=== PATIENT | male | born 1960 | race Caucasian/White ===

== ENCOUNTER 2017-08-12 12:15 | Inpatient (IN) | payer OTHER ==
[2017-08-12] VITALS (11 sets, daily range): BP systolic 107–152; BP diastolic 56–91; PULSE 103–120; RESP 12–20; TEMP 97.2–98.5; O2SAT 93–99
[~2017-08-12] VITALS: Ht 172.7 cm; Wt 75.1 kg
[~2017-08-12 12:15] MED LIST: LEVEMIR SQ; NOVOLOGP2 SC; ULTR50TA PO
[2017-08-12] MEDS ORDERED: SODIUM CHLOR 0.9% 1000 ML INJ 1,000 ML IV ONE ×2 (13:56→14:26)
[2017-08-12] MEDS ORDERED: FAMOTIDINE 20 MG/2 ML VIAL IV PUSH ONE (14:00)
[2017-08-12] MEDS ORDERED: ALUMINUM/MAGNESIUM/SIMETH 30 ML CUP PO ONE (14:00)
[2017-08-12] MEDS ORDERED: SODIUM CHLORIDE 0.9% FLUSH 10 ML FLUSH IVF PRN (14:00)
[2017-08-12] MEDS ORDERED: ONDANSETRON HCL 4 MG/2 ML VIAL IVP ONE (14:00)
[2017-08-12] MEDS ORDERED: LIDOCAINE VISCOUS 2% SOLN 15 ML UDC PO ONE (14:00)
--- NOTE | 2017-08-12 14:13 | PD ---
HPI Chief Complaint: GI Complaint Time Seen by Provider: 13:39 Travel History International Travel<30 days: No Contact w/Intl Traveler<30days: No Traveled to known affect area: No History of Present Illness HPI The patient is a 56-year-old male who presents to the emergency department for 3 days of nausea, vomiting, generalized weakness. The patient now notes increased blood sugars which have been in the 300s and 400s. The patient does have a history of diabetes and takes insulin, long-acting insulin, short-acting insulin, and possibly Actos. He does not know the medication names. He last took his long-acting insulin 2 nights ago, last use short acting insulin, 16 units, last night. Blood sugar upon arrival today was 391. He complains of nausea, vomiting, without any epigastric abdominal pain. He does complain of generalized weakness, subjective fevers, chills, sweats, and body aches. He did not receive an influenza vaccination this year. He denies any new cough, does note occasional urinary retention. The patient states he fell several months ago, had difficulty getting out of bed, and had outpatient MRIs which were negative per his report. The patient's primary physician is Dr. Vega. Symptoms are moderate without any current alleviating or exacerbating factors. 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 Ware. [facility] Past Medical History Diabetes: Yes Diminished Hearing: No Immunizations Current: Yes Past Surgical History Other Surgery: Yes (L CAROTID SURGERY) Social History Alcohol Use: No Tobacco Use: Yes Substance Use: No Allergies-Medications (Allergen,Severity, Reaction): Coded Allergies: No Known Allergies (Unverified Adverse Reaction, Unknown, 08/12/17) Reported Meds & Prescriptions Reported Meds & Active Scripts Active Reported Bupropion HCl ER 24 HR (Bupropion HCl) 300 Mg Tab 300 Mg PO DAILY Atorvastatin (Atorvastatin Calcium) 40 Mg Tab 40 Mg PO HS Actos (Pioglitazone HCl) 45 Mg Tab 45 Mg PO DAILY Lisinopril 5 Mg Tab 5 Mg PO DAILY Tresiba Flextouch Pen Inj (Insulin Degludec Inj) 600 unit/3 ML Pen 44 Units SQ HS Novolog Inj (Insulin Aspart) 1,000 Unit/10 Ml Vial 0 SQ DIRECTED Sliding Scale as directed. Review of Systems Except as stated in HPI: all other systems reviewed are Neg General / Constitutional: Positive: Fever, Chills HENT: Positive: Lightheadedness Cardiovascular: No: Chest Pain or Discomfort Respiratory: No: Shortness of Breath Gastrointestinal: Positive: Nausea, Vomiting, Abdominal Pain, No: Diarrhea Genitourinary: Positive: Hesitancy, No: Dysuria Musculoskeletal: Positive: Myalgias, Weakness Neurologic: No: Dizziness Physical Exam Narrative GENERAL: Awake, alert, pleasant 56-year-old male who appears his stated age and is in no acute respiratory distress. SKIN: Focused skin assessment warm/dry. HEAD: Atraumatic. Normocephalic. EYES: Pupils equal and round. No scleral icterus. No injection or drainage. ENT: No nasal bleeding or discharge. Dry mucous membranes. NECK: Trachea midline. No JVD. CARDIOVASCULAR: Regular, tachycardic with a heart rate of 110. RESPIRATORY: No accessory muscle use. Clear to auscultation. Breath sounds equal bilaterally. GASTROINTESTINAL: Abdomen soft, mild tenderness epigastrium but no guarding or rigidity. MUSCULOSKELETAL: No obvious deformities. No clubbing. No cyanosis. No edema. NEUROLOGICAL: Awake and alert. No obvious cranial nerve deficits. Motor grossly within normal limits. Normal speech. PSYCHIATRIC: Appropriate mood and affect; insight and judgment normal. Data Data Last Documented VS Vital Signs Date Time Temp Pulse Resp B/P (MAP) Pulse Ox O2 Delivery O2 Flow Rate FiO2 08/12/17 14:16 103 18 152/91 (111) 97 08/12/17 14:07 Room Air 08/12/17 12:20 97.2 Orders Orders Electrocardiogram (08/12/17 13:56) Complete Blood Count With Diff (08/12/17 13:56) Comprehensive Metabolic Panel (08/12/17 13:56) Magnesium (Mg) (08/12/17 13:56) Beta Hydroxybutyrate (Acetone) (08/12/17 13:56) Lactic Acid (08/12/17 13:56) Urinalysis - C+S If Indicated (08/12/17 13:56) Chest, Single Ap (08/12/17 13:56) Blood Gas Venous (Vbg) (08/12/17 13:56) Blood Glucose (08/12/17 13:56) Blood Glucose (08/12/17 14:56) Ecg Monitoring (08/12/17 13:56) Iv Access Insert/Monitor (08/12/17 13:56) Oximetry (08/12/17 13:56) NPO (08/12/17 13:56) Sodium Chlor 0.9% 1000 Ml Inj (Ns 1000 M (08/12/17 13:56) Sodium Chlor 0.9% 1000 Ml Inj (Ns 1000 M (08/12/17 14:26) Sodium Chloride 0.9% Flush (Ns Flush) (08/12/17 14:00) Troponin I (08/12/17 13:56) Lipase (08/12/17 13:56) Ondansetron Inj (Zofran Inj) (08/12/17 14:00) Famotidine Inj (Pepcid Inj) (08/12/17 14:00) Al-Mag Hy-Si 40-40-4 Mg/Ml Liq (Mag-Al P (08/12/17 14:00) Lidocaine 2% Viscous (Xylocaine 2% Visco (08/12/17 14:00) Warehouse Delivery Manager / Telemetry [email or web address] (08/12/17 14:41) ^ Insert Iv (08/12/17 14:41) Diet Npo (08/12/17 Dinner) Sodium Chlor 0.9% 1000 Ml Inj (Ns 1000 M (08/12/17 14:41) Dext 5%-Nacl 0.9% 1000 Ml Inj (D5w-Ns 10 (08/12/17 14:41) Insulin Human Regular Inj (Novolin R Inj (08/12/17 14:45) Insulin Regular (Iv Infusion) (Novolin R (08/12/17 14:45) Potassium Chlor 40 Meq Premix (Kcl 40 Me (08/12/17 14:45) Potassium Chlor 40 Meq Premix (Kcl 40 Me (08/12/17 14:45) Potassium Chlor 20 Meq Premix (Kcl 20 Me (08/12/17 14:45) Potassium Chlor 20 Meq Premix (Kcl 20 Me (08/12/17 14:45) Potassium Chlor 20 Meq Premix (Kcl 20 Me (08/12/17 14:45) Potassium Chlor 20 Meq Premix (Kcl 20 Me (08/12/17 14:45) Potassium Chlor 20 Meq Premix (Kcl 20 Me (08/12/17 14:45) Potassium Chlor 20 Meq Premix (Kcl 20 Me (08/12/17 14:45) Sodium Bicarbonate 8.4% Inj (Sodium Bica (08/12/17 14:45) Sodium Bicarbonate 8.4% Inj (Sodium Bica (08/12/17 14:45) Sodium Phosphate Inj (Sodium Phosphate I (08/12/17 14:45) Hemoglobin (Hgb) A1c (08/12/17 14:41) Basic Metabolic Panel (Bmp) (08/12/17 19:41) Basic Metabolic Panel (Bmp) (08/13/17 01:41) Basic Metabolic Panel (Bmp) (08/13/17 07:41) Basic Metabolic Panel (Bmp) (08/13/17 13:41) Magnesium (Mg) (08/12/17 19:41) Magnesium (Mg) (08/13/17 01:41) Magnesium (Mg) (08/13/17 07:41) Magnesium (Mg) (08/13/17 13:41) Phosphorus (Po4) (08/12/17 19:41) Phosphorus (Po4) (08/13/17 01:41) Phosphorus (Po4) (08/13/17 07:41) Phosphorus (Po4) (08/13/17 13:41) Beta Hydroxybutyrate (Acetone) (08/13/17 01:41) Beta Hydroxybutyrate (Acetone) (08/13/17 13:41) Admit Order (Ed Use Only) (08/12/17 14:48) Labs Laboratory Tests Test 08/12/17 14:08 08/12/17 14:16 White Blood Count 7.8 TH/MM3 Red Blood Count 5.19 MIL/MM3 Hemoglobin 15.7 GM/DL Hematocrit 47.8 % Mean Corpuscular Volume 92.2 FL Mean Corpuscular Hemoglobin 30.2 PG Mean Corpuscular Hemoglobin Concent 32.7 % Red Cell Distribution Width 13.1 % Platelet Count 214 TH/MM3 Mean Platelet Volume 8.3 FL Neutrophils (%) (Auto) 85.2 % Lymphocytes (%) (Auto) 10.1 % Monocytes (%) (Auto) 3.7 % Eosinophils (%) (Auto) 0.0 % Basophils (%) (Auto) 1.0 % Neutrophils # (Auto) 6.6 TH/MM3 Lymphocytes # (Auto) 0.8 TH/MM3 Monocytes # (Auto) 0.3 TH/MM3 Eosinophils # (Auto) 0.0 TH/MM3 Basophils # (Auto) 0.1 TH/MM3 CBC Comment DIFF FINAL Differential Comment Blood Urea Nitrogen 17 MG/DL Creatinine 1.30 MG/DL Random Glucose 400 MG/DL Total Protein 8.7 GM/DL Albumin 4.1 GM/DL Calcium Level 10.0 MG/DL Magnesium Level 2.1 MG/DL Alkaline Phosphatase 135 U/L Aspartate Amino Transf (AST/SGOT) 11 U/L Alanine Aminotransferase (ALT/SGPT) 22 U/L Total Bilirubin 0.6 MG/DL Sodium Level 133 MEQ/L Potassium Level 5.1 MEQ/L Chloride Level 95 MEQ/L Carbon Dioxide Level 12.4 MEQ/L Anion Gap 26 MEQ/L Estimat Glomerular Filtration Rate 57 ML/MIN Lactic Acid Level 2.3 mmol/L Troponin I LESS THAN 0.02 NG/ML Lipase 50 U/L B-Hydroxybutyrate 10.99 MMOL/L Blood Gas Puncture Site P.IV Blood Gas Patient Temperature 98.6 Venous Blood pH 7.18 Venous Blood Partial Pressure CO2 30 mmHg Venous Blood Partial Pressure O2 49 mmHg Venous Blood HCO3 11 mmol/L Venous Blood Oxygen Saturation 74 % Venous Blood Oxygen Content 16.7 Vol % Venous Blood Base Excess -15.9 mmol/L Oxygen Delivery Device ROOM AIR Blood Gas Inspired Oxygen 21 % [facility] Medical Decision Making Medical Screen Exam Complete: Yes Emergency Medical Condition: Yes Medical Record Reviewed: Yes Interpretation(s) EKG reveals sinus tachycardia with a heart rate of 101. Left anterior fascicular block. Last Impressions Chest X-Ray 08/12/17 1066 Signed Impressions: Service Date/Time: Saturday, August 12, 2017 14:02 - CONCLUSION: No acute disease. Eric Han MD FACR Laboratory Tests Test 08/12/17 14:08 08/12/17 14:16 White Blood Count 7.8 TH/MM3 Red Blood Count 5.19 MIL/MM3 Hemoglobin 15.7 GM/DL Hematocrit 47.8 % Mean Corpuscular Volume 92.2 FL Mean Corpuscular Hemoglobin 30.2 PG Mean Corpuscular Hemoglobin Concent 32.7 % Red Cell Distribution Width 13.1 % Platelet Count 214 TH/MM3 Mean Platelet Volume 8.3 FL Neutrophils (%) (Auto) 85.2 % Lymphocytes (%) (Auto) 10.1 % Monocytes (%) (Auto) 3.7 % Eosinophils (%) (Auto) 0.0 % Basophils (%) (Auto) 1.0 % Neutrophils # (Auto) 6.6 TH/MM3 Lymphocytes # (Auto) 0.8 TH/MM3 Monocytes # (Auto) 0.3 TH/MM3 Eosinophils # (Auto) 0.0 TH/MM3 Basophils # (Auto) 0.1 TH/MM3 CBC Comment DIFF FINAL Differential Comment Blood Urea Nitrogen 17 MG/DL Creatinine 1.30 MG/DL Random Glucose 400 MG/DL Total Protein 8.7 GM/DL Albumin 4.1 GM/DL Calcium Level 10.0 MG/DL Magnesium Level 2.1 MG/DL Alkaline Phosphatase 135 U/L Aspartate Amino Transf (AST/SGOT) 11 U/L Alanine Aminotransferase (ALT/SGPT) 22 U/L Total Bilirubin 0.6 MG/DL Sodium Level 133 MEQ/L Potassium Level 5.1 MEQ/L Chloride Level 95 MEQ/L Carbon Dioxide Level 12.4 MEQ/L Anion Gap 26 MEQ/L Estimat Glomerular Filtration Rate 57 ML/MIN Lactic Acid Level 2.3 mmol/L Troponin I LESS THAN 0.02 NG/ML Lipase 50 U/L B-Hydroxybutyrate 10.99 MMOL/L Blood Gas Puncture Site P.IV Blood Gas Patient Temperature 98.6 Venous Blood pH 7.18 Venous Blood Partial Pressure CO2 30 mmHg Venous Blood Partial Pressure O2 49 mmHg Venous Blood HCO3 11 mmol/L Venous Blood Oxygen Saturation 74 % Venous Blood Oxygen Content 16.7 Vol % Venous Blood Base Excess -15.9 mmol/L Oxygen Delivery Device ROOM AIR Blood Gas Inspired Oxygen 21 % Differential Diagnosis Differential diagnosis includes gastritis, GERD, pancreatitis, biliary colic, DKA, dehydration, hypokalemia, hyponatremia, electrolyte abnormality, STEMI. Narrative Course IV was established, labs are drawn and sent, and the patient was placed on cardiac telemetry monitoring and continuous pulse oximetry monitoring. VBG was obtained. The patient was administered Zofran, GI cocktail, Pepcid, 2 L of IV fluids. Chest x-ray was obtained. UA was sent to lab. Patient's VBG reveals a pH of 7.18 with low bicarb, anion gap is 26, beta hydroxy is greater than 10, labs are consistent with diabetic ketoacidosis. The patient was administered 2 L of IV fluids, placed on DKA pathway with insulin 6 units intravenously and placed on an insulin drip. Chest x-ray was negative. Creatinine was unremarkable. The patient will be admitted to the intensive care unit under DKA protocol. Critical Care Narrative Aggregate critical care time was 40 minutes. Time to perform other separately billable procedures was not included in the critical care time. My time did not include minutes spent treating any other patients simultaneously or on activities that did not directly contribute to the patient's treatment. The services I provided to this patient were to treat and/or prevent clinically significant deterioration that could result in: Dehydration, acute renal failure , electrolyte abnormality, arrhythmia, coma. I provided critical care services requiring my management, as noted below: Chart data review, documentation time, medication orders and management, vital sign assessments/reviewing monitor data, ordering and reviewing lab tests, ordering and interpreting/reviewing x-rays and diagnostic studies, care of the patient and discussion of the patient with the admitting physicians. Physician Communication Physician Communication The on-call medical service was paged for admission. I discussed the patient with Dr. Piper who agrees with admission. Diagnosis Primary Impression: DKA (diabetic ketoacidoses) Qualified Codes: E13.10 - Other specified diabetes mellitus with ketoacidosis without coma Admitting Information Admitting Physician Requests: Admit Condition: Stable Chris Johnson MD Aug 12, 2017 14:13
[2017-08-12] MEDS ORDERED: NOVOLOGP2 SQ (14:15)
[2017-08-12] MEDS ORDERED: INSU1INJ13 SQ (14:15)
[2017-08-12] MEDS ORDERED: ATOR40TA16 PO (14:15)
[2017-08-12] MEDS ORDERED: ACTO45TA15 PO (14:15)
[2017-08-12] MEDS ORDERED: LISI-519 PO (14:15)
[2017-08-12] MEDS ORDERED: BUPR300T PO (14:15)
[2017-08-12 14:16] LABS: AUTOMATED NEUTROPHIL # 6.6 TH/MM3 (1.8-7.7); BASOPHIL # 0.1 TH/MM3 (0-0.2); HEMATOCRIT 47.8 % (39.0-51.0); HEMOGLOBIN 15.7 GM/DL (13.0-17.0); LYMPH % 10.1 % (9.0-44.0); LYMPHOCYTE # 0.8 TH/MM3 (1.0-4.8); MEAN CELL VOLUME 92.2 FL (80.0-100.0); MEAN CORPUSCULAR HEMOGLOBIN 30.2 PG (27.0-34.0); MEAN CORPUSCULAR HGB CONC 32.7 % (32.0-36.0); MEAN PLATELET VOLUME 8.3 FL (7.0-11.0); MONO % 3.7 % (0.0-8.0); MONOCYTE # 0.3 TH/MM3 (0-0.9); NEUT % 85.2 % (16.0-70.0); PLATELET COUNT 214 TH/MM3 (150-450); RED BLOOD COUNT 5.19 MIL/MM3 (4.50-5.90); RED CELL DISTRIBUTION WIDTH 13.1 % (11.6-17.2); WHITE BLOOD COUNT 7.8 TH/MM3 (4.0-11.0)
[2017-08-12 14:25] LABS: CHLORIDE 95 MEQ/L (98-107); SODIUM (NA) 133 MEQ/L (136-145)
--- NOTE | 2017-08-12 14:26 | RADRPT ---
EXAM DATE/TIME: 08/12/2017 14:02 [place] COMPARISON: No previous studies available for comparison. INDICATIONS : Vomiting and heartburn MEDICAL HISTORY : None. SURGICAL HISTORY : None. ENCOUNTER: Initial ACUITY: 3 days PAIN SCORE: 0/10 LOCATION: Bilateral chest FINDINGS: A single view of the chest demonstrates the lungs to be symmetrically aerated without evidence of mas s, infiltrate or effusion. The cardiomediastinal contours are unremarkable. Osseous structures are intact. CONCLUSION: No acute disease. Eric Han MD FACR on August 12, 2017 at 14:24 Board Certified Radiologist. This report was verified electronically.
[2017-08-12 14:29] LABS: ALBUMIN 4.1 GM/DL (3.4-5.0); BICARBONATE 12.4 MEQ/L (21.0-32.0); BLOOD UREA NITROGEN 17 MG/DL (7-18); GLUCOSE,RANDOM 400 MG/DL (74-106); MAGNESIUM 2.1 MG/DL (1.5-2.5)
[2017-08-12 14:31] LABS: ALT (GPT) 22 U/L (12-78); AST (GOT) 11 U/L (15-37); GLOMERULAR FILTRATION RATE 57 ML/MIN (>89)
[2017-08-12 14:33] LABS: TOTAL BILIRUBIN ADULT 0.6 MG/DL (0.2-1.0); TOTAL PROTEIN 8.7 GM/DL (6.4-8.2)
[2017-08-12 14:34] LABS: ALKALINE PHOSPHATASE 135 U/L (45-117)
[2017-08-12 14:37] LABS: TROPONIN I LESS THAN 0.02 NG/ML (0.02-0.05)
[2017-08-12] MEDS ORDERED: INSULIN REGULAR (IV INFUSION) 100 UNITS in SODIUM CHLORIDE 0.9% INJ 99 ML IV PRN (14:45)
[2017-08-12] MEDS ORDERED: POTASSIUM CHLOR 20 MEQ PREMIX 100 ML IV PRN ×6 (14:45)
[2017-08-12] MEDS ORDERED: SODIUM PHOSPHATE INJ 15 MMOL in SODIUM CHLORIDE 0.9% INJ 100 ML IV PRN (14:45)
[2017-08-12] MEDS ORDERED: SODIUM BICARBONATE 8.4% SOLN 50 MEQ/50 ML VIAL IV PUSH PRN ×2 (14:45)
[2017-08-12] MEDS ORDERED: POTASSIUM CHLOR 40 MEQ PREMIX 100 ML IV PRN ×2 (14:45)
[2017-08-12] MEDS ORDERED: INSULIN HUMAN REGULAR 1,000 UNITS/10 ML VIAL IV PUSH ONE (14:45)
--- NOTE | 2017-08-12 15:14 | HHI.HP ---
[facility] Service [facility] Primary Care Physician Cezar Vega MD Admission Diagnosis Diabetic ketoacidosis, dehydration Diagnoses: Chief Complaint: Weakness and nausea Travel History International Travel<30 Days: No Contact w/Intl Traveler <30 Da: No Traveled to Known Affected Are: No History of Present Illness This patient is a 56-year-old gentleman with a history of diabetes which has been managed by the patient and his primary care doctor. He does note increase in blood sugars lately into the 3 and 400s and recently had increased nausea and vomiting with weakness. He saw his primary care doctor today on the advice of his and was sent emergently to the emergency room for further evaluation. Patient is grossly weak and is acidotic with elevated beta hydroxybutyrate acid. Patient been admitted to the hospital due to DKA. He notes no chest pain and no muscular skeletal injury. He notes no fevers or chills. Here he received insulin and has felt better. He was given some antiemetics and has felt better also Review of Systems Constitutional: DENIES: Diaphoretic episodes, Fatigue, Fever, Weight gain, Weight loss, Chills, Dizziness, Change in appetite, Night Sweats Endocrine: DENIES: Heat/cold intolerance, Polydipsia, Polyuria, Polyphagia Eyes: DENIES: Blurred vision, Diplopia, Eye inflammation, Eye pain, Vision loss , Photosensitivity, Double Vision Ears, nose, mouth, throat: DENIES: Tinnitus, Hearing loss, Vertigo, Nasal discharge, Oral lesions, Throat pain, Hoarseness, Ear Pain, Running Nose, Epistaxis, Sinus Pain, Toothache, Odynophagia Respiratory: DENIES: Apneas, Cough, Snoring, Wheezing, Hemoptysis, Sputum production, Shortness of breath Cardiovascular: DENIES: Chest pain, Palpitations, Syncope, Dyspnea on Exertion , PND, Lower Extremity Edema, Orthopnea, Claudication Gastrointestinal: COMPLAINS OF: Nausea, Vomiting, DENIES: Abdominal pain, Black stools, Bloody stools, Constipation, Diarrhea, Difficulty Swallowing, Anorexia Genitourinary: COMPLAINS OF: Urinary frequency, DENIES: Sexual dysfunction, Urinary incontinence, Urgency, Hematuria, Dysuria, Nocturia, Penile Discharge, Testicular Pain, Testicular Swelling Musculoskeletal: DENIES: Joint pain, Muscle aches, Stiffness, Joint Swelling, Back pain, Neck pain Integumentary: DENIES: Abnormal pigmentation, Nail changes, Pruritus, Rash Hematologic/lymphatic: DENIES: Bruising, Lymphadenopathy Neurologic: DENIES: Abnormal gait, Headache, Localized weakness, Paresthesias, Seizures, Speech Problems, Tremor, Poor Balance Psychiatric: COMPLAINS OF: Anxiety, DENIES: Confusion, Mood changes, Depression , Hallucinations, Agitation, Suicidal Ideation, Homicidal Ideation, Delusions Except as stated in HPI: all other systems reviewed are Neg Past Family Social History Past Medical History Diabetes mellitus type 2 Hyperlipidemia Hypertension Anxiety Past Surgical History Minor orthopedic surgery Reported Medications Reviewed in the EMR Allergies: Coded Allergies: No Known Allergies (Unverified Allergy, Unknown, 08/12/17) Active Ordered Medications Reviewed in the EMR Family History Mother is alive and well Father from heart disease Social History Patient smokes cigars daily for 40 years, no alcohol 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 SKIN: No rashes, ecchymoses or lesions. Cool and dry. HEAD: Atraumatic. Normocephalic. No temporal or scalp tenderness. EYES: Pupils equal round and reactive. Extraocular motions intact. No scleral icterus. No injection or drainage. ENT: Nose without bleeding, purulent drainage or septal hematoma. Throat without erythema, tonsillar hypertrophy or exudate. Uvula midline. Airway patent. NECK: Trachea midline. No JVD or lymphadenopathy. Supple, nontender, no meningeal signs. CARDIOVASCULAR: Regular rate and rhythm without murmurs, gallops, or rubs. RESPIRATORY: Clear to auscultation. Breath sounds equal bilaterally. No wheezes , rales, or rhonchi. GASTROINTESTINAL: Abdomen soft, non-tender, nondistended. No hepato-splenomegaly , or palpable masses. No guarding. MUSCULOSKELETAL: Extremities without clubbing, cyanosis, or edema. No joint tenderness, effusion, or edema noted. No calf tenderness. Negative Homans sign bilaterally. NEUROLOGICAL: Awake and alert. Cranial nerves II through XII intact. Motor and sensory grossly within normal limits. Five out of 5 muscle strength in all muscle groups. Normal speech. Laboratory Laboratory Tests Test 08/12/17 14:08 08/12/17 14:16 08/12/17 14:50 White Blood Count 7.8 Red Blood Count 5.19 Hemoglobin 15.7 Hematocrit 47.8 Mean Corpuscular Volume 92.2 Mean Corpuscular Hemoglobin 30.2 Mean Corpuscular Hemoglobin Concent 32.7 Red Cell Distribution Width 13.1 Platelet Count 214 Mean Platelet Volume 8.3 Neutrophils (%) (Auto) 85.2 Lymphocytes (%) (Auto) 10.1 Monocytes (%) (Auto) 3.7 Eosinophils (%) (Auto) 0.0 Basophils (%) (Auto) 1.0 Neutrophils # (Auto) 6.6 Lymphocytes # (Auto) 0.8 Monocytes # (Auto) 0.3 Eosinophils # (Auto) 0.0 Basophils # (Auto) 0.1 CBC Comment DIFF FINAL Differential Comment Blood Urea Nitrogen 17 Creatinine 1.30 Random Glucose 400 Total Protein 8.7 Albumin 4.1 Calcium Level 10.0 Magnesium Level 2.1 Alkaline Phosphatase 135 Aspartate Amino Transf (AST/SGOT) 11 Alanine Aminotransferase (ALT/SGPT) 22 Total Bilirubin 0.6 Sodium Level 133 Potassium Level 5.1 Chloride Level 95 Carbon Dioxide Level 12.4 Anion Gap 26 Estimat Glomerular Filtration Rate 57 Lactic Acid Level 2.3 Troponin I LESS THAN 0.02 Lipase 50 B-Hydroxybutyrate 10.99 Blood Gas Puncture Site P.IV Blood Gas Patient Temperature 98.6 Venous Blood pH 7.18 Venous Blood Partial Pressure CO2 30 Venous Blood Partial Pressure O2 49 Venous Blood HCO3 11 Venous Blood Oxygen Saturation 74 Venous Blood Oxygen Content 16.7 Venous Blood Base Excess -15.9 Oxygen Delivery Device ROOM AIR Blood Gas Inspired Oxygen 21 Result Diagram: 08/12/17 1408 08/12/17 1408 Imaging Last Impressions Chest X-Ray 08/12/17 1356 Signed Impressions: Service Date/Time: Saturday, August 12, 2017 14:02 - CONCLUSION: No acute disease. Eric Han MD FACR Caprini VTE Risk Assessment Caprini VTE Risk Assessment: Mod/High Risk (score >= 2) Caprini Risk Assessment Model Point Value = 1 Point Value = 2 Point Value = 3 Point Value = 5 Age 41-60 Minor surgery BMI > 25 kg/m2 Swollen legs Varicose veins or History of unexplained or recurrent spontaneous Oral contraceptives or hormone replacement Sepsis (< 1 month) Serious lung disease, including pneumonia (< 1 month) Abnormal pulmonary function Acute myocardial infarction Congestive heart failure (< 1 month) History of inflammatory bowel disease Medical patient at bed rest Age 61-74 Arthroscopic surgery Major open surgery (> 45 min) Laparoscopic surgery (> 45 min) Malignancy Confined to bed (> 72 hours) Immobilizing plaster cast Central venous access Age >= 75 History of VTE Family history of VTE Factor V Leiden Prothrombin [id number] Lupus anticoagulant Anticardiolipin antibodies Elevated serum homocysteine Heparin-induced thrombocytopenia Other congenital or acquired thrombophilia Stroke (< 1 month) Elective arthroplasty Hip, pelvis, or leg fracture Acute spinal cord injury (< 1 month) Prophylaxis Regimen Total Risk Factor Score Risk Level Prophylaxis Regimen 0-1 Low Early ambulation 2 Moderate Order ONE of the following: *Sequential Compression Device (SCD) *Heparin 5000 units SQ BID 3-4 Higher Order ONE of the following medications: *Heparin 5000 units SQ TID *Enoxaparin/Lovenox 40 mg SQ daily (WT < 150 kg, CrCl > 30 mL/min) *Enoxaparin/Lovenox 30 mg SQ daily (WT < 150 kg, CrCl > 10-29 mL/min) *Enoxaparin/Lovenox 30 mg SQ BID (WT < 150 kg, CrCl > 30 mL/min) AND/OR *Sequential Compression Device (SCD) 5 or more Highest Order ONE of the following medications: *Heparin 5000 units SQ TID (Preferred with Epidurals) *Enoxaparin/Lovenox 40 mg SQ daily (WT < 150 kg, CrCl > 30 mL/min) *Enoxaparin/Lovenox 30 mg SQ daily (WT < 150 kg, CrCl > 10-29 mL/min) *Enoxaparin/Lovenox 30 mg SQ BID (WT < 150 kg, CrCl > 30 mL/min) AND *Sequential Compression Device (SCD) Assessment and Plan Problem List: (1) DKA (diabetic ketoacidoses) ICD Code: E13.10 - Other specified diabetes mellitus with ketoacidosis without coma Status: Acute Plan: Continue with IV insulin IV fluids and electrolyte management Patient will be admitted to the ICU Problem Qualifiers (1) DKA (diabetic ketoacidoses): Qualified Codes: E13.10 - Other specified diabetes mellitus with ketoacidosis without coma Lala Piper MD Aug 12, 2017 15:14
[2017-08-12 15:30] LABS: BILIRUBIN, URINE NEG (NEG); BLOOD, URINE TRACE (NEG); GLUCOSE,URINE 1000 OR GREATER mg/dL (NEG); KETONE, URINE 80 OR GREATER mg/dL (NEG); NITRITE,URINE NEG (NEG); PH, URINE 5.5 (5.0-8.5); URINE COLOR YELLOW (YELLW/STRAW); URINE LEUKOCYTE ESTERASE NEG (NEG)
[2017-08-12 15:32] LABS: HYALINE CAST, URINE 0-2 /lpf (RARE)
[2017-08-12 15:33] LABS: RBC, URINE 0-3 /hpf (0-3); SQUAMOUS EPITHELIAL CELL URINE 0-5 /hpf (0-5)
[2017-08-12] MEDS: SODIUM CHLOR 0.9% 1000 ML INJ 1,000 ML IV SCH ×3 (16:09→22:41)
[2017-08-12] MEDS ORDERED: ACETAMINOPHEN 325 MG TAB PO PRN (18:15)
[2017-08-12] MEDS ORDERED: NALOXONE HCL 0.4 MG/ML AMP IV PUSH PRN (18:15)
[2017-08-12] MEDS ORDERED: SODIUM CHLORIDE 0.9% FLUSH 10 ML FLUSH IV FLUSH PRN (18:15)
[2017-08-12] MEDS ORDERED: MAGNESIUM HYDROXIDE SUSP 30 ML CUP PO PRN (18:15)
[2017-08-12] MEDS ORDERED: ONDANSETRON HCL 4 MG/2 ML VIAL IVP PRN (18:15)
[2017-08-12] MEDS: DEXT 5%-NACL 0.9% 1000 ML INJ 1,000 ML IV SCH ×2 (19:15→21:18)
[2017-08-12 19:26] LABS: BICARBONATE 12.7 MEQ/L (21.0-32.0); BLOOD UREA NITROGEN 16 MG/DL (7-18); CALCIUM 8.5 MG/DL (8.5-10.1); CHLORIDE 110 MEQ/L (98-107); GLOMERULAR FILTRATION RATE 69 ML/MIN (>89); GLUCOSE,RANDOM 217 MG/DL (74-106); PHOSPHORUS 0.9 MG/DL (2.5-4.9); SODIUM (NA) 141 MEQ/L (136-145)
[2017-08-12] MEDS: buPROPion HCL 150 MG SUSTAINED RELEASE TAB PO SCH (21:00)
[2017-08-12] MEDS: SODIUM CHLORIDE 0.9% FLUSH 10 ML FLUSH IV FLUSH SCH (21:00)
[2017-08-12] MEDS: ENOXAPARIN SODIUM 40 MG/0.4 ML SYRINGE SQ SCH (21:16)
[2017-08-12] MEDS: ATORVASTATIN 40 MG TAB PO SCH (21:17)
[2017-08-13] VITALS (23 sets, daily range): BP systolic 96–128; BP diastolic 57–77; PULSE 88–110; RESP 10–21; TEMP 96.8–98.5; O2SAT 93–98
[2017-08-13] MEDS: DEXT 5%-NACL 0.9% 1000 ML INJ 1,000 ML IV SCH (00:41)
[2017-08-13 00:43] LABS: CALCIUM 8.3 MG/DL (8.5-10.1)
[2017-08-13 01:08] LABS: BICARBONATE 22.7 MEQ/L (21.0-32.0); CREATININE 1.1 MG/DL (0.60-1.30); PHOSPHORUS 0.2 MG/DL (2.5-4.9)
[2017-08-13] MEDS: SODIUM CHLOR 0.9% 1000 ML INJ 1,000 ML IV SCH ×3 (03:32→23:10)
[2017-08-13 06:23] LABS: AUTOMATED NEUTROPHIL # 7.2 TH/MM3 (1.8-7.7); BASOPHIL # 0.5 TH/MM3 (0-0.2); BASOPHIL % 4.8 % (0.0-2.0); EOSINOPHIL % 0.2 % (0.0-4.0); HEMATOCRIT 38.4 % (39.0-51.0); HEMOGLOBIN 12.9 GM/DL (13.0-17.0); LYMPH % 13.4 % (9.0-44.0); LYMPHOCYTE # 1.3 TH/MM3 (1.0-4.8); MEAN CELL VOLUME 91.1 FL (80.0-100.0); MEAN CORPUSCULAR HEMOGLOBIN 30.5 PG (27.0-34.0); MEAN CORPUSCULAR HGB CONC 33.5 % (32.0-36.0); MEAN PLATELET VOLUME 7.7 FL (7.0-11.0); MONO % 7.5 % (0.0-8.0); MONOCYTE # 0.7 TH/MM3 (0-0.9); NEUT % 74.1 % (16.0-70.0); PLATELET COUNT 187 TH/MM3 (150-450); RED BLOOD COUNT 4.22 MIL/MM3 (4.50-5.90); RED CELL DISTRIBUTION WIDTH 12.7 % (11.6-17.2); WHITE BLOOD COUNT 9.7 TH/MM3 (4.0-11.0)
[2017-08-13] MEDS ORDERED: GLUCAGON 1 MG/ML VIAL OTHER PRN (06:30)
[2017-08-13] MEDS ORDERED: DEXTROSE 50% IN WATER 50 ML VIAL(D50) IV PUSH PRN (06:30)
[2017-08-13] MEDS: INSULIN ASPART SUPPLEMENTAL SCALE SQ SCH ×4 (08:00→20:50)
[2017-08-13] MEDS: LISINOPRIL 5 MG TAB PO SCH (09:22)
[2017-08-13] MEDS: SODIUM CHLORIDE 0.9% FLUSH 10 ML FLUSH IV FLUSH SCH ×2 (09:22→20:49)
[2017-08-13] MEDS: buPROPion HCL 150 MG SUSTAINED RELEASE TAB PO SCH ×2 (09:23→20:49)
[2017-08-13] MEDS: INSULIN DETEMIR 100 UNITS/ML VIAL SQ SCH ×2 (09:23→20:50)
[2017-08-13] MEDS ORDERED: PNEUMOCOCCAL POLYVALENT INJ 25 MCG/0.5 ML SYR IM ONE (10:00)
--- NOTE | 2017-08-13 12:26 | HHI.PR ---
Subjective Remarks Patient seen in follow up for DKE likely due to poor compliance to medications and diet better now off IV insulin Tolerating diet and gap is closed still feels weak complains of left thigh knot after fall 5 weeks ago Objective Vitals Vital Signs Date Time Temp Pulse Resp B/P (MAP) Pulse Ox O2 Delivery O2 Flow Rate FiO2 08/13/17 11:00 94 21 124/76 (92) 96 08/13/17 10:00 88 10 113/64 (80) 97 08/13/17 10:00 88 08/13/17 09:00 98 21 120/77 (91) 97 08/13/17 08:00 98.5 98 19 103/67 (79) 98 08/13/17 08:00 104 08/13/17 07:00 102 18 95 08/13/17 06:25 100 08/13/17 06:15 90 14 97/65 (76) 97 08/13/17 05:30 98 16 108/66 (80) 94 08/13/17 04:24 97.3 100 20 113/61 (78) 08/13/17 04:00 105 08/13/17 03:01 100 15 128/57 (80) 96 08/13/17 02:10 103 08/13/17 02:01 98 14 118/61 (80) 95 08/13/17 01:01 108 15 113/63 (80) 95 08/13/17 00:01 98.2 110 17 114/59 (77) 93 08/13/17 00:00 108 08/12/17 23:17 106 08/12/17 23:01 116 18 122/57 (78) 95 08/12/17 22:00 118 13 113/62 (79) 93 08/12/17 21:00 120 19 118/61 (80) 95 08/12/17 20:00 119 08/12/17 20:00 104 12 122/67 (85) 96 08/12/17 19:34 107 08/12/17 19:07 98.5 106 17 132/61 (84) 96 08/12/17 18:36 08/12/17 17:59 118 20 107/56 (73) 99 Room Air 08/12/17 14:16 103 18 152/91 (111) 97 08/12/17 14:07 97 Room Air I/O 08/12/17 08/12/17 08/12/17 08/13/17 08/13/17 08/13/17 07:00 15:00 23:00 07:00 15:00 23:00 Intake Total 3308.3 ml 1100 ml Output Total 1000 ml 1400 ml Balance 2308.3 ml -300 ml Intake IV Total 3308.3 ml 1100 ml Output Urine Total 1000 ml 1400 ml # Voids 2 Result Diagram: 08/13/17 0605 08/13/17 0002 Imaging Last Impressions Chest X-Ray 08/12/17 1356 Signed Impressions: Service Date/Time: Saturday, August 12, 2017 14:02 - CONCLUSION: No acute disease. Eric Han MD FACR Objective Remarks GENERAL: This is a well-nourished, well-developed patient, in no apparent distress. CARDIOVASCULAR: Regular rate and rhythm without murmurs, gallops, or rubs. RESPIRATORY: Clear to auscultation. Breath sounds equal bilaterally. No wheezes , rales, or rhonchi. GASTROINTESTINAL: Abdomen soft, non-tender, nondistended. Normal active bowel sounds MUSCULOSKELETAL: left thigh muscular knot, no edema, no ecchymosis other 3 Extremities without clubbing, cyanosis, or edema. NEURO: Alert & Oriented x4 to person, place, time, situation. Moves all ext x4 A/P Problem List: (1) DKA (diabetic ketoacidoses) ICD Code: E13.10 - Other specified diabetes mellitus with ketoacidosis without coma Status: Acute Plan: Continue with SQ insulin advance diet/activity ptn education Discharge Planning dc in am if stable med surg unit d/w director nicu Problem Qualifiers (1) DKA (diabetic ketoacidoses): Qualified Codes: E13.10 - Other specified diabetes mellitus with ketoacidosis without coma Lala Piper MD Aug 13, 2017 12:25
[2017-08-13] MEDS ORDERED: MENTHOL/METHYL SALICYLATE OINT 30 GM TUBE TOPICAL PRN (12:30)
[2017-08-13] MEDS: DOCUSATE SODIUM 100 MG CAP PO SCH ×2 (13:00→20:49)
[2017-08-13] MEDS: INSULIN ASPART 1,000 UNITS/10 ML VIAL SQ SCH ×2 (13:30→17:23)
[2017-08-13] MEDS ORDERED: INSULIN HUMAN REGULAR 1,000 UNITS/10 ML VIAL SQ SCH (13:30)
--- NOTE | 2017-08-13 19:28 | EKG ---
Date Performed: 08/12/2017 Time Performed: 14:14:17 PTAGE: 56 years EKG: SINUS TACHYCARDIA LEFT ANTERIOR FASCICULAR BLOCK ABNORMAL ECG Since PREVIOUS TRACING , no significant change noted PREVIOUS TRACIN04/14/2015 07.32 DOCTOR: Kate Alba Interpretating Date/Time 08/13/2017 19:25:01
[2017-08-13] MEDS: ATORVASTATIN 40 MG TAB PO SCH (20:49)
[2017-08-13] MEDS: ENOXAPARIN SODIUM 40 MG/0.4 ML SYRINGE SQ SCH (20:50)
[2017-08-14] VITALS (7 sets, daily range): BP systolic 102–129; BP diastolic 56–68; PULSE 89–101; RESP 16–20; TEMP 96.6–97.7; O2SAT 93–97
[2017-08-14 07:30] LABS: AUTOMATED NEUTROPHIL # 2.2 TH/MM3 (1.8-7.7); BASOPHIL # 0.1 TH/MM3 (0-0.2); BASOPHIL % 1.8 % (0.0-2.0); EOSINOPHIL # 0.1 TH/MM3 (0-0.4); EOSINOPHIL % 2.1 % (0.0-4.0); HEMATOCRIT 36.6 % (39.0-51.0); HEMOGLOBIN 12.8 GM/DL (13.0-17.0); LYMPH % 27.2 % (9.0-44.0); LYMPHOCYTE # 1.1 TH/MM3 (1.0-4.8); MEAN CELL VOLUME 90.2 FL (80.0-100.0); MEAN CORPUSCULAR HEMOGLOBIN 31.5 PG (27.0-34.0); MEAN CORPUSCULAR HGB CONC 34.9 % (32.0-36.0); MEAN PLATELET VOLUME 8.3 FL (7.0-11.0); MONO % 9.2 % (0.0-8.0); MONOCYTE # 0.4 TH/MM3 (0-0.9); NEUT % 59.7 % (16.0-70.0); PLATELET COUNT 150 TH/MM3 (150-450); RED BLOOD COUNT 4.06 MIL/MM3 (4.50-5.90); RED CELL DISTRIBUTION WIDTH 13.1 % (11.6-17.2); WHITE BLOOD COUNT 3.9 TH/MM3 (4.0-11.0)
[2017-08-14] MEDS: SODIUM CHLORIDE 0.9% FLUSH 10 ML FLUSH IV FLUSH SCH ×2 (07:33→20:42)
[2017-08-14] MEDS: SODIUM CHLOR 0.9% 1000 ML INJ 1,000 ML IV SCH ×2 (07:34→17:29)
[2017-08-14 07:57] LABS: BICARBONATE 24.7 MEQ/L (21.0-32.0); CREATININE 0.53 MG/DL (0.60-1.30)
--- NOTE | 2017-08-14 07:57 | HHI.PR ---
Subjective Remarks Patient seen and evaluated today in follow-up for DKA which is resolved. Patient now on Lantus and sliding scale plus insulin with meals Blood sugar still quite elevated in the 300s. Patient without nausea and vomiting. Still feels a bit weak Objective Vitals Vital Signs Date Time Temp Pulse Resp B/P (MAP) Pulse Ox O2 Delivery O2 Flow Rate FiO2 08/14/17 07:37 97.3 91 16 113/58 (76) 95 08/14/17 07:05 96 08/14/17 04:00 96.6 96 20 114/56 (75) 94 08/14/17 00:00 97.0 101 20 129/68 (88) 93 08/13/17 20:00 102 08/13/17 20:00 96.8 97 20 109/59 (76) 96 08/13/17 18:10 98 08/13/17 18:00 96 08/13/17 16:00 97.6 101 14 120/67 (84) 95 08/13/17 14:00 110 08/13/17 14:00 110 19 96/58 (71) 08/13/17 13:00 102 20 104/67 (79) 08/13/17 12:00 97.7 96 15 97/64 (75) 96 08/13/17 12:00 96 08/13/17 11:00 94 21 124/76 (92) 96 08/13/17 10:00 88 10 113/64 (80) 97 08/13/17 10:00 88 08/13/17 09:00 98 21 120/77 (91) 97 08/13/17 08:00 98.5 98 19 103/67 (79) 98 08/13/17 08:00 104 I/O 08/13/17 08/13/17 08/13/17 08/14/17 08/14/17 08/14/17 07:00 15:00 23:00 07:00 15:00 23:00 Intake Total 1100 ml 1000 ml 240 ml Output Total 1400 ml 750 ml 900 ml Balance -300 ml 1000 ml -750 ml -660 ml Intake Oral 240 ml IV Total 1100 ml 1000 ml Output Urine Total 1400 ml 750 ml 900 ml # Voids 0 Result Diagram: 08/14/17 0610 08/13/17 0002 Imaging Last Impressions Chest X-Ray 08/12/17 1356 Signed Impressions: Service Date/Time: Saturday, August 12, 2017 14:02 - CONCLUSION: No acute disease. Eric Han MD FACR Objective Remarks GENERAL: This is a well-nourished, well-developed patient, in no apparent distress. CARDIOVASCULAR: Regular rate and rhythm without murmurs, gallops, or rubs. RESPIRATORY: Clear to auscultation. Breath sounds equal bilaterally. No wheezes , rales, or rhonchi. GASTROINTESTINAL: Abdomen soft, non-tender, nondistended. Normal active bowel sounds MUSCULOSKELETAL: left thigh muscular knot, no edema, no ecchymosis other 3 Extremities without clubbing, cyanosis, or edema. NEURO: Alert & Oriented x4 to person, place, time, situation. Moves all ext x4 A/P Problem List: (1) DKA (diabetic ketoacidoses) ICD Code: E13.10 - Other specified diabetes mellitus with ketoacidosis without coma Status: Acute Plan: Continue with SQ insulin, Lantus twice daily and insulin with meals advance diet/activity ptn education Follow-up hemoglobin A1c (2) Weakness ICD Code: R53.1 - Weakness Plan: ambulate ivf Discharge Planning dc in am Problem Qualifiers (1) DKA (diabetic ketoacidoses): Qualified Codes: E13.10 - Other specified diabetes mellitus with ketoacidosis without coma Lala Piper MD Aug 14, 2017 07:57
[2017-08-14] MEDS: INSULIN ASPART SUPPLEMENTAL SCALE SQ SCH ×4 (08:27→20:42)
[2017-08-14] MEDS: INSULIN ASPART 1,000 UNITS/10 ML VIAL SQ SCH ×3 (08:28→17:28)
[2017-08-14] MEDS: INSULIN DETEMIR 100 UNITS/ML VIAL SQ SCH ×2 (08:28→20:42)
[2017-08-14] MEDS: LISINOPRIL 5 MG TAB PO SCH (08:29)
[2017-08-14] MEDS: buPROPion HCL 150 MG SUSTAINED RELEASE TAB PO SCH ×2 (08:29→20:41)
[2017-08-14] MEDS: DOCUSATE SODIUM 100 MG CAP PO SCH ×2 (08:29→20:41)
[2017-08-14] MEDS: MENTHOL/METHYL SALICYLATE OINT 30 GM TUBE TOPICAL SCH ×2 (08:30→21:00)
[2017-08-14 11:42] LABS: HEMOGLOBIN A1C 11.3 % (4.3-6.0)
[2017-08-14] MEDS ORDERED: ACETAMINOPHEN/HYDROcodone 325 MG/5 MG TAB PO PRN (17:15)
[2017-08-14] MEDS: ENOXAPARIN SODIUM 40 MG/0.4 ML SYRINGE SQ SCH (20:41)
[2017-08-14] MEDS: ATORVASTATIN 40 MG TAB PO SCH (20:41)
[2017-08-15] VITALS: BP 112/56; PULSE 93; RESP 18; TEMP 96.3; O2SAT 94
[2017-08-15] MEDS: SODIUM CHLOR 0.9% 1000 ML INJ 1,000 ML IV SCH (03:34)
[2017-08-15 07:50] VITALS: BP 130/77; PULSE 89; RESP 20; TEMP 97.3; O2SAT 96
[2017-08-15] MEDS ORDERED: POTASSIUM CHLORIDE 10 MEQ CONTROLLED RELEASE TAB PO ONE (08:15)
[2017-08-15 08:30] VITALS: BP 131/77; PULSE 79
[2017-08-15] MEDS: INSULIN ASPART SUPPLEMENTAL SCALE SQ SCH ×2 (08:31→12:30)
[2017-08-15] MEDS: INSULIN DETEMIR 100 UNITS/ML VIAL SQ SCH (08:32)
[2017-08-15] MEDS: DOCUSATE SODIUM 100 MG CAP PO SCH (08:32)
[2017-08-15] MEDS: buPROPion HCL 150 MG SUSTAINED RELEASE TAB PO SCH (08:34)
[2017-08-15] MEDS: LISINOPRIL 5 MG TAB PO SCH (08:34)
[2017-08-15] MEDS: MENTHOL/METHYL SALICYLATE OINT 30 GM TUBE TOPICAL SCH (09:00)
[2017-08-15] MEDS: SODIUM CHLORIDE 0.9% FLUSH 10 ML FLUSH IV FLUSH SCH (10:19)
[2017-08-15] MEDS: INSULIN ASPART 1,000 UNITS/10 ML VIAL SQ SCH (10:20)
[2017-08-15] MEDS ORDERED: NOVOLOGP2 SQ (10:25)
[2017-08-15] MEDS ORDERED: LEVEMIR SQ (10:25)
[2017-08-15 11:00] VITALS: BP 120/70; PULSE 82; RESP 20; TEMP 97.6; O2SAT 98
--- NOTE | 2017-08-15 11:28 | HHI.DS ---
Discharge Summary Admission Date Aug 12, 2017 at 14:48 Discharge Date: Aug 15, 2017 Admitting Diagnosis Diabetic ketoacidosis, dehydration (1) DKA (diabetic ketoacidoses) ICD Code: E13.10 - Other specified diabetes mellitus with ketoacidosis without coma Diagnosis: Principal Status: Acute (2) Weakness ICD Code: R53.1 - Weakness Diagnosis: Principal Procedures None Brief History - From Admission This patient is a 56-year-old gentleman with a history of diabetes which has been managed by the patient and his primary care doctor. He does note increase in blood sugars lately into the 3 and 400s and recently had increased nausea and vomiting with weakness. He saw his primary care doctor today on the advice of his and was sent emergently to the emergency room for further evaluation. Patient is grossly weak and is acidotic with elevated beta hydroxybutyrate acid. Patient been admitted to the hospital due to DKA. He notes no chest pain and no muscular skeletal injury. He notes no fevers or chills. Here he received insulin and has felt better. He was given some antiemetics and has felt better also CBC/BMP: 08/14/17 0610 08/14/17 0610 Significant Findings Laboratory Tests Test 08/12/17 14:08 08/12/17 14:16 08/12/17 14:50 08/12/17 19:00 Neutrophils (%) (Auto) 85.2 % (16.0-70.0) Lymphocytes # (Auto) 0.8 TH/MM3 (1.0-4.8) Random Glucose 400 MG/DL (74-106) 217 MG/DL (74-106) Total Protein 8.7 GM/DL (6.4-8.2) Alkaline Phosphatase 135 U/L (45-117) Aspartate Amino Transf (AST/SGOT) 11 U/L (15-37) Sodium Level 133 MEQ/L (136-145) Chloride Level 95 MEQ/L (98-107) 110 MEQ/L (98-107) Carbon Dioxide Level 12.4 MEQ/L (21.0-32.0) 12.7 MEQ/L (21.0-32.0) Anion Gap 26 MEQ/L (5-15) 18 MEQ/L (5-15) Estimat Glomerular Filtration Rate 57 ML/MIN (>89) 69 ML/MIN (>89) Lactic Acid Level 2.3 mmol/L (0.4-2.0) Troponin I LESS THAN 0.02 NG/ML Lipase 50 U/L (73-393) B-Hydroxybutyrate 10.99 MMOL/L (0.00-0.39) Venous Blood pH 7.18 (7.360-7.400) Venous Blood Partial Pressure CO2 30 mmHg (44-48) Venous Blood Partial Pressure O2 49 mmHg (35-40) Venous Blood HCO3 11 mmol/L (22-26) Venous Blood Base Excess -15.9 mmol/L (-2-2) Urine Glucose (UA) 1000 OR GREATER mg/dL Urine Ketones 80 OR GREATER mg/dL (NEG) Phosphorus Level 0.9 MG/DL (2.5-4.9) Hemoglobin A1c 11.3 % (4.3-6.0) Test 08/13/17 00:02 08/13/17 06:05 08/14/17 06:10 Random Glucose 166 MG/DL (74-106) 164 MG/DL (74-106) Calcium Level 8.3 MG/DL (8.5-10.1) 8.0 MG/DL (8.5-10.1) Phosphorus Level 0.2 MG/DL (2.5-4.9) Chloride Level 114 MEQ/L (98-107) Estimat Glomerular Filtration Rate 69 ML/MIN (>89) B-Hydroxybutyrate 0.48 MMOL/L (0.00-0.39) Red Blood Count 4.22 MIL/MM3 (4.50-5.90) 4.06 MIL/MM3 (4.50-5.90) Hemoglobin 12.9 GM/DL (13.0-17.0) 12.8 GM/DL (13.0-17.0) Hematocrit 38.4 % (39.0-51.0) 36.6 % (39.0-51.0) Neutrophils (%) (Auto) 74.1 % (16.0-70.0) Basophils (%) (Auto) 4.8 % (0.0-2.0) Basophils # (Auto) 0.5 TH/MM3 (0-0.2) White Blood Count 3.9 TH/MM3 (4.0-11.0) Monocytes (%) (Auto) 9.2 % (0.0-8.0) Creatinine 0.53 MG/DL (0.60-1.30) Potassium Level 3.4 MEQ/L (3.5-5.1) PE at Discharge GENERAL: This is a well-nourished, well-developed patient, in no apparent distress. CARDIOVASCULAR: Regular rate and rhythm without murmurs, gallops, or rubs. RESPIRATORY: Clear to auscultation. Breath sounds equal bilaterally. No wheezes , rales, or rhonchi. GASTROINTESTINAL: Abdomen soft, non-tender, nondistended. Normal active bowel sounds MUSCULOSKELETAL: left thigh muscular knot, no edema, no ecchymosis other 3 Extremities without clubbing, cyanosis, or edema. NEURO: Alert & Oriented x4 to person, place, time, situation. Moves all ext x4 Hospital Course Mr. Alonso is a 56-year-old male. He is admitted secondary to DKA. This was his first episode of DKA. He is a type I diabetic for about 10 years. IV insulin corrected his primary DKA. He has not been converted over to long- acting insulins coupled with mealtime insulins and a sliding scale. He showing stability on current treatment. Medically stable for discharge to home on new diabetic treatments. Pt Condition on Discharge: Stable Discharge Disposition: Discharge Home Discharge Time: <= 30 minutes Discharge Instructions DIET: Follow Instructions for: Diabetic Diet Activities you can perform: Regular-No Restrictions Follow up Referrals: Endocrinology - 2 Weeks PCP Follow-up - 2 Weeks PCP Follow-up New Medications: Insulin Aspart Inj (Novolog Inj) 1,000 Unit/10 Ml Vial 5 UNITS SQ TIDPC for Meal Glucose Control, #1 VIAL Insulin Detemir Inj (Levemir Inj) 1,000 unit/ 10 ML Vial 16 UNITS SQ Q12HR for GLucose COntrol, #1 VIAL Do not mix with any other Insulin. Continued Medications: Atorvastatin (Atorvastatin) 40 Mg Tab 40 MG PO HS for Cholesterol Management, #30 TAB 0 Refills Bupropion HCl ER 24 HR (Bupropion HCl ER 24 HR) 300 Mg Tab 300 MG PO DAILY for Control Depression, TAB 0 Refills Insulin Aspart Inj (Novolog Inj) 1,000 Unit/10 Ml Vial 0 SQ DIRECTED for Blood Sugar Management, #10 ML 0 Refills Sliding Scale as directed. Lisinopril (Lisinopril) 5 Mg Tab 5 MG PO DAILY for Blood Pressure Management, #30 TAB 0 Refills Discontinued Medications: Insulin Degludec Inj (Tresiba Flextouch Pen Inj) 600 unit/3 ML Pen 44 UNITS SQ HS for Blood Sugar Management, #9 ML 0 Refills Pioglitazone (Actos) 45 Mg Tab 45 MG PO DAILY for Blood Sugar Management, #30 TAB 0 Refills Jayy Gross MD Aug 15, 2017 11:28
== END 2017-08-15 13:20 | disposition home or self-care (01) | DRG 639 ==
LOC: PHED 12:15 → PHEDA 14:48 → PHICU 18:30 → PH3A 08-13 15:03
PROVIDERS: ADMIT Hospitalist; ATTEND Hospitalist
DX: E11.10 Type 2 diabetes mellitus with ketoacidosis without coma (principal); R53.1 Weakness; I10 Essential (primary) hypertension; E78.5 Hyperlipidemia, unspecified; E86.0 Dehydration; R50.9 Fever, unspecified; R00.0 Tachycardia, unspecified; R33.9 Retention of urine, unspecified; F41.9 Anxiety disorder, unspecified; M79.1 Myalgia; F17.290 Nicotine dependence, other tobacco product, uncomplicated; Z79.4 Long term (current) use of insulin; Z23 Encounter for immunization
CPT/HCPCS: 71045; 80048; 80053; 81001; 82010; 82805; 82948; 83036; 83605; 83690; 83735; 84100; 84484; 85025; 90471; 90732; 93005; 96374; 96375; G0009; J1650; J1815; J1817; J2405; J3480; J7030; J7042